=== PATIENT | male | born 1975 | race Caucasian/White ===

== ENCOUNTER 2016-05-24 00:24 | Emergency (ER) | payer OTHER ==
[2016-05-24 00:52] LABS: BASOPHIL % 0.4 % (0-2); PLATELET COUNT 249 x10^3mcL (130-400); RED CELL DISTRIBUTION WIDTH 12.7 % (11.5-14.5)
[2016-05-24 00:58] LABS: CALCIUM 8.7 mg/dL (8.5-10.1); CARBON DIOXIDE 30.6 mmol/L (21-32); CHLORIDE SERUM 103 mmol/L (98-107); GFR1 > 60 mL/min; GLUCOSE SERUM 109 mg/dL (74-106); POTASSIUM SERUM 3.6 mmol/L (3.5-5.1); SODIUM SERUM 138 mmol/L (136-145)
[2016-05-24 01:06] LABS: ALBUMIN 4.2 g/dL (3.4-5.0); ALKALINE PHOSPHATASE 89 U/L (46-116); ALT/SGPT 37 U/L (16-63); AMYLASE 76 U/L (25-115); AST/SGOT 18 U/L (15-37); BILIRUBIN TOTAL 0.55 mg/dL (0.20-1.00); LIPASE 123 IU/L (73-393); TOTAL PROTEIN, SERUM 7.7 g/dL (6.4-8.2)
[2016-05-24 02:48] LABS: microscopic required? YES; urine erythrocyte 2+ (NEGATIVE)
[2016-05-24 04:20] VITALS: BP 138/82
== END 2016-05-24 04:20 | disposition home or self-care (01) ==
LOC: ED 00:24
PROVIDERS: Emergency Medicine
DX: N20.0 Calculus of kidney (principal); Z87.442 Personal history of urinary calculi
CPT/HCPCS: J1170; J1885; J2270; J7030; Q0092; Q0162

== ENCOUNTER 2017-05-01 20:58 | Emergency (ER) | payer OTHER ==
[~2017-05-01] VITALS: Ht 172.7 cm; Wt 90.7 kg
[2017-05-01 21:00] VITALS: Ht 172.7 cm; Wt 90.7 kg
[2017-05-01 21:49] LABS: PLATELET COUNT 212 x10^3mcL (130-400)
[2017-05-01 21:51] LABS: BASOPHIL % 8.2 % (0-2)
[2017-05-01 21:57] LABS: CALCIUM 9.1 mg/dL (8.5-10.1); CARBON DIOXIDE 27.2 mmol/L (21-32); CHLORIDE SERUM 104 mmol/L (98-107); CREATININE SERUM 0.9 mg/dL (0.7-1.3); GFR1 > 60 mL/min; GLUCOSE SERUM 101 mg/dL (74-106); POTASSIUM SERUM 3.9 mmol/L (3.5-5.1); SODIUM SERUM 143 mmol/L (136-145)
[2017-05-01 22:10] LABS: microscopic required? NO
[2017-05-01 22:11] LABS: ALBUMIN 4.3 g/dL (3.4-5.0); ALKALINE PHOSPHATASE 102 U/L (46-116); ALT/SGPT 46 U/L (16-63); AST/SGOT 31 U/L (15-37); BILIRUBIN TOTAL 0.56 mg/dL (0.20-1.00); FREE T4 1.08 ng/dL (0.76-1.46)
[2017-05-01 22:15] LABS: urine erythrocyte NEGATIVE (NEGATIVE)
[2017-05-02 01:06] VITALS: BP 115/71
== END 2017-05-02 01:06 | disposition home or self-care (01) ==
LOC: ED 20:58
PROVIDERS: Emergency Medicine
DX: R06.02 Shortness of breath (principal)
CPT/HCPCS: 83880; 84439; 85378; 87804; J1885; J2405; J7030

== ENCOUNTER 2019-08-02 03:13 | Emergency (ER) | payer OTHER ==
[~2019-08-02] VITALS: Ht 172.7 cm; Wt 93.0 kg
[2019-08-02 03:16] VITALS: Ht 172.7 cm; Wt 93.0 kg
[2019-08-02 04:20] LABS: BASOPHIL % 0.7 % (0-2); PLATELET COUNT 234 x10^3mcL (130-400); RED CELL DISTRIBUTION WIDTH 12.8 % (11.5-14.5)
[2019-08-02 04:50] LABS: ALBUMIN 3.6 g/dL (3.4-5.0); ALKALINE PHOSPHATASE 80 U/L (46-116); ALT/SGPT 61 U/L (16-63); AST/SGOT 24 U/L (15-37); BILIRUBIN TOTAL 0.4 mg/dL (0.20-1.00); CALCIUM 8.3 mg/dL (8.5-10.1); CARBON DIOXIDE 26.7 mmol/L (21-32); CHLORIDE SERUM 106 mmol/L (98-107); CHOLESTEROL 170 mg/dL (<200); GFR1 > 60 mL/min; GLUCOSE SERUM 110 mg/dL (74-106); LIPASE 106 IU/L (73-393); POTASSIUM SERUM 3.8 mmol/L (3.5-5.1); SODIUM SERUM 141 mmol/L (136-145); TOTAL PROTEIN, SERUM 6.7 g/dL (6.4-8.2)
[2019-08-02 04:51] LABS: CHOLESTEROL/HDL RATIO 5.5; HDL CHOLESTEROL 31 mg/dL (40-60); TRIGLYCERIDES 253 mg/dL (<150)
[2019-08-02 04:55] LABS: FREE T4 1.37 ng/dL (0.76-1.46); FREE THYROXINE INDEX 2.6 ug/dL (1.4-4.5); T4(THYROXINE) 7.7 ug/dL (4.7-13.3)
[2019-08-02 05:53] LABS: T3 TOTAL 1.01 ng/mL
[2019-08-02 06:08] VITALS: BP 109/68
== END 2019-08-02 06:08 | disposition home or self-care (01) ==
LOC: ED 03:13
PROVIDERS: Specialist
DX: R07.89 Other chest pain (principal); R11.0 Nausea; E78.00 Pure hypercholesterolemia, unspecified; Z87.442 Personal history of urinary calculi
CPT/HCPCS: 36415; 83880; 84439; Q0092